=== PATIENT | female | born 2000 | race Caucasian/White ===

== ENCOUNTER 2021-01-27 05:02 | Outpatient (CLI) | payer OTHER | END 2021-01-27 08:58 | disposition home or self-care (01) | LOC: GENOP 05:02 | DX: O47.03 False labor before 37 completed weeks of gestation, third trimester (principal); Z3A.34 34 weeks gestation of pregnancy; O23.43 Unspecified infection of urinary tract in pregnancy, third trimester; N39.0 Urinary tract infection, site not specified; O99.613 Diseases of the digestive system complicating pregnancy, third trimester; K21.9 Gastro-esophageal reflux disease without esophagitis | CPT/HCPCS: 81001; 82731; 96365; 96366; 96372 ==

== ENCOUNTER 2021-02-02 21:28 | Outpatient (CLI) | payer OTHER | END 2021-02-03 01:01 | disposition home or self-care (01) | LOC: GENOP 21:28 | PROVIDERS: Obstetrics & Gynecology | DX: O23.93 Unspecified genitourinary tract infection in pregnancy, third trimester (principal); Z3A.34 34 weeks gestation of pregnancy; O99.333 Smoking (tobacco) complicating pregnancy, third trimester; O47.03 False labor before 37 completed weeks of gestation, third trimester | CPT/HCPCS: 80307; 81001; 96365; 96366; 96367; J0696 ==

== ENCOUNTER 2021-02-10 20:34 | Outpatient (CLI) | payer OTHER | END 2021-02-10 22:34 | disposition home or self-care (01) | LOC: GENOP 20:34 | DX: O47.03 False labor before 37 completed weeks of gestation, third trimester (principal); O42.913 Preterm premature rupture of membranes, unspecified as to length of time between rupture and onset of labor, third trimester; O99.333 Smoking (tobacco) complicating pregnancy, third trimester; Z3A.36 36 weeks gestation of pregnancy | CPT/HCPCS: 83518; G0463 ==

== ENCOUNTER 2021-02-27 05:15 | Inpatient (IN) | payer OTHER ==
[~2021-02-27] VITALS: Ht 170.2 cm; Wt 81.6 kg
[2021-02-27] MEDS ORDERED: PRENATABS FA T1 EACH PO (06:25)
[2021-02-27 07:37] LABS: RED BLOOD COUNT 3.43 M/UL (4.00-5.10)
[2021-02-28 06:13] LABS: HEMOGLOBIN 9.4 gm/dl (12.3-15.3)
[2021-02-28] MEDS ORDERED: IBUPROFEN600 MG PO (13:43)
[2021-02-28] MEDS ORDERED: COLACE 100MG C100 MG PO (13:43)
== END 2021-02-28 16:04 | disposition home or self-care (01) | DRG 807 ==
LOC: OB 05:15
PROVIDERS: Obstetrics & Gynecology; ADMIT Obstetrics & Gynecology
PROC: 10E0XZZ Delivery of Products of Conception, External Approach (ICD-10-PCS; principal; 2021-02-27)
PROC: 0UQMXZZ Repair Vulva, External Approach (ICD-10-PCS; 2021-02-27)
PROC: 4A1HXCZ Monitoring of Products of Conception, Cardiac Rate, External Approach (ICD-10-PCS; 2021-02-27)
PROC: 3E0234Z Introduction of Serum, Toxoid and Vaccine into Muscle, Percutaneous Approach (ICD-10-PCS; 2021-02-27)
DX: O99.334 Smoking (tobacco) complicating childbirth (principal); Z37.0 Single live birth; O70.1 Second degree perineal laceration during delivery; Z3A.39 39 weeks gestation of pregnancy; F17.210 Nicotine dependence, cigarettes, uncomplicated; Z23 Encounter for immunization
CPT/HCPCS: 36415; 81001; 85014; 85018; 85025; 85461; 86850; 86900; 86901; 90715; J2590; J2790; J7030; U0002